=== PATIENT | male | born 1990 | race Caucasian/White ===

== ENCOUNTER 2016-10-17 15:36 | Emergency (ER) | payer MEDICAID ==
[~2016-10-17] VITALS: Wt 84.5 kg
[~2016-10-17 15:36] MED LIST: CIPR500T4 PO; FAMO-18 PO; HYDR-3720 PO; HYDR-902 PO; IBUP-1542 PO; IBUP800T25 PO
[2016-10-17] MEDS ORDERED: IBUP-1542 PO (17:32)
[2016-10-17] MEDS ORDERED: CEPH-443 PO (17:32)
[2016-10-17] MEDS ORDERED: BACTDS PO (17:32)
--- NOTE | 2016-10-17 17:42 | ERD ---
ER Documentation Chief Complaint Date/Time DATE: 10/17/16 TIME: 17:34 Chief Complaint LEFT 1ST TOE PAIN, SWELLING HPI Patient is a 26-year-old [place]ian-speaking male who presents with left toe pain and swelling. He states that he developed pain 2 weeks ago after injuring his toe where a tree trunk fell on his toe. He denies fever or chills. His xray was unremarkable and he has taken norco for his pain. However he states that it is red and swollen and drained pus a few days ago. He denies any new injuries or trauma. He states he does not have difficulty walking on his foot. He denies radiation of pain or swelling of his foot. Denies calf pain. Denies cough shortness of breath difficulty breathing. Denies headache or dizziness. Patient is requesting medication for his symptoms. Denies nausea, vomiting or diarrhea. ROS All systems reviewed and are negative except as per history of present illness. Medications Home Meds Active Scripts Ibuprofen* (Motrin*) 600 Mg Tab, 600 MG PO Q6, #30 TAB Prov:ELISE RODRIGEZ PA-C 10/17/16 Cephalexin* (Keflex*) 500 Mg Capsule, 500 MG PO QID for 5 Days, CAP Prov:ELISE RODRIGEZ PA-C 10/17/16 Sulfamethoxazole-Trimethoprim* (Bactrim* DS) 800-160 Mg Tab, 1 TAB PO BID for 5 Days, TAB Prov:ELISE RODRIGEZ PA-C 10/17/16 Ibuprofen* (Motrin*) 800 Mg Tab, 800 MG PO Q6, #30 TAB Prov:KAREN LEDEZMA PA-C 10/05/16 Hydrocodone/Acetaminophen ([place] 10-325 Tablet) 1 Each Tablet, 1 TAB PO Q6H Y for PAIN, #7 TAB Prov:KAREN LEDEZMA PA-C 10/05/16 Famotidine* (Pepcid*) 20 Mg Tablet, 20 MG PO BID for 14 Days, TAB Prov:KAI LEDESMA 05/25/16 Hydrocodone Bit-Acetaminophen* ([place]*) 7.5-325 Tablet, 1 TAB PO Q4H Y for PAIN , #20 TAB Prov:LEANA CHAO DO 01/23/16 Ibuprofen* (Motrin*) 800 Mg Tab, 800 MG PO Q6H Y for PAIN AND OR ELEVATED TEMP, #30 TAB Prov:LEANA CHAO DO 01/23/16 Ibuprofen* (Ibuprofen*) 600 Mg Tablet, 600 MG PO Q6, #30 TAB Prov:PARMINDER CAMPBELL MOISES 07/04/15 Ciprofloxacin Hcl* (Ciprofloxacin Hcl*) 500 Mg Tablet, 500 MG PO BID for 10 Days , TAB Prov:PARMINDER CAMPBELL MOISES 07/04/15 Allergies Allergies: Coded Allergies: No Known Allergy (Unverified , 10/17/16) PMhx/Soc Medical and Surgical Hx: pt denies Medical Hx, pt denies Surgical Hx History of Surgery: No Anesthesia Reaction: No Hx Neurological Disorder: No Hx Respiratory Disorders: No Hx Cardiac Disorders: No Hx Psychiatric Problems: No Hx Miscellaneous Medical Probl: No Hx Alcohol Use: Yes Hx Substance Use: No Hx Tobacco Use: Yes Smoking Status: Current every day smoker FmHx Family History: No coronary disease, No diabetes, No other Physical Exam Vitals Vital Signs Date Time Temp Pulse Resp B/P Pulse Ox O2 Delivery O2 Flow Rate FiO2 10/17/16 15:38 98.0 82 17 120/70 96 Physical Exam GENERAL: Well-developed, well-nourished male. Appears in no acute distress. HEAD: Normocephalic, atraumatic. LUNG: Clear to auscultation bilaterally. No rhonchi, wheezing, rales or coarse breath sounds. HEART: Regular rate and rhythm. No murmurs, rubs or gallops. BACK: No midline tenderness. Extremities: Equal pulses bilaterally. No peripheral clubbing, cyanosis or edema. No unilateral leg swelling. SKIN: tenderness and slight erythema to left great toe. no signs of felon. no streaking. pulses intact. rom intact. NEUROLOGIC: Alert and oriented. Moving all four extremities. 5/5 strength in all extremities. Normal speech. Steady gait. SKIN: Normal color. Warm and dry. . Capillary refill < 2 seconds Results 24 hrs Current Medications Medications (Trade) Dose Ordered Sig/Terri Route PRN Reason Start Time Stop Time Status Last Admin Dose Admin Ceftriaxone Sodium (Rocephin) 250 mg ONCE ONCE IM 10/17/16 18:00 10/17/16 18:01 DC 10/17/16 17:52 Lidocaine (Xylocaine 1% (Mdv) 20 ml) 20 ml ONCE ONCE SC 10/17/16 18:00 10/17/16 18:01 DC 10/17/16 17:53 Procedures/MDM ER COURSE: I kept the patient and/or family informed of laboratory and diagnostic imaging results throughout the emergency room course. MEDICATIONS: Rocephin, lidocaine. Patient tolerated medication well with no adverse reaction. ED dressing to toe. MEDICAL DECISION MAKING: This is a 26-year-old male who presents with left toe pain. Vital signs were reviewed. Patient is afebrile. Patient is not hypoxic. Patient is not toxic or ill-appearing. Patient has an infection in his left great toe. I do not think an incision and drainage is warranted at this time as the toe has already drained and I do not feel any fluctuance in the toe. Low suspicion for necrotizing fasciitis, SJS, toxic epidermal necrolysis, Kawasaki, erythema multiforme, gangrene, scarlet fever, meningococcemia, sepsis, anaphylaxis. Low suspicion for paronychia, felon. Patient had x-rays done on 10/05/2016 which was unremarkable. I do not think a repeat x-ray is necessary at this time as there is no new recent trauma and patient does not have pain. Low suspicion for dislocation, fracture, septic joint, compartment syndrome, osteomyelitis, cellulitis, avascular necrosis, neurological injury, vascular injury, tendon laceration. DISCHARGE: At this time, patient is stable for discharge and outpatient management with no new complaints during the ER course. Patient was sent home with Bactrim and Keflex and ibuprofen. Advised patient to return in 2 days for wound recheck. Patient will be discharged home with instructions to recheck for new or worsening symptoms such as fever, nausea, weakness, LOC and to follow up with primary care in the next 1-2 days. Patient was advised to return to the ER for any new or worsening symptoms. Plan was discussed and patient and/or family understands and agrees. Home instructions were given. Departure Diagnosis: Primary Impression: Toe pain, left Condition: Stable Patient Instructions: Sprain Toe Additional Instructions: Llame al doctor LINCOLN y gisela jonnathan SEAN PARA DENTRO DE 1-2 MEJIA.Dgale a la secretaria que nosotros le instruimos hacer esta sean.Avise o llame si roy condicin se empeora antes de la sean. Regresa aqui si peor o no mejor. ELISE RODRIGEZ PA-C Oct 17, 2016 17:42
[2016-10-17] MEDS ORDERED: CEFTRIAXONE 250 MG INJ IM ONE (18:00)
[2016-10-17] MEDS ORDERED: LIDOCAINE 1% (MDV) 20 ML INJ SC ONE (18:00)
== END 2016-10-17 18:15 | disposition home or self-care (01) ==
LOC: FTE 15:36
DX: S99.922A Unspecified injury of left foot, initial encounter (principal); F17.210 Nicotine dependence, cigarettes, uncomplicated; W20.8XXA Other cause of strike by thrown, projected or falling object, initial encounter; Y92.9 Unspecified place or not applicable
CPT/HCPCS: 96372; J0696; Z7502; Z7610

== ENCOUNTER 2017-05-06 08:13 | Emergency (ER) | payer MEDICAID ==
[~2017-05-06] VITALS: Wt 83.0 kg
[~2017-05-06 08:13] MED LIST changes: +BACTDS PO; +CEPH-443 PO; -FAMO-18 PO; +FAMO-96 PO
[2017-05-06] MEDS ORDERED: LIDOCAINE/MYLANTA 40 ML BTL PO STA (08:28)
--- NOTE | 2017-05-06 08:40 | ERD ---
ER Documentation Chief Complaint Date/Time DATE: 05/06/17 TIME: 08:39 Chief Complaint ABD PAIN X 8 DAYS HPI 26-year-old male with history of GERD presents with epigastric abdominal pain that radiates his left upper quadrant for the past 8 days. He describes it as burning pain, worse with eating, previously has been treated with ranitidine. This time he tried taking Tums however it did not improve his pain. He states that he does drink a few beers, alcoholic beverages each day. He denies any history of fevers or chills, nausea, vomiting, chest pain or shortness of breath. ROS All systems reviewed and are negative except as per history of present illness. Medications Home Meds Active Scripts Omeprazole* (Omeprazole*) 20 Mg Capsule.dr, 20 MG PO DAILY, #30 Prov:PHILIP GILLIS PA-C 05/06/17 Ranitidine Hcl* (Zantac*) 150 Mg Tablet, 150 MG PO BID Y for EPIGASTRIC PAIN, # 30 TAB Prov:PHILIP GILLIS PA-C 05/06/17 Hydrocodone/Acetaminophen ([place] 5-325 Tablet) 1 Each Tablet, 1 TAB PO Q6H Y for PAIN, #7 TAB Prov:PHILIP GILLIS PA-C 05/06/17 Ibuprofen* (Motrin*) 600 Mg Tab, 600 MG PO Q6, #30 TAB Prov:ELISE RODRIGEZ PA-C 10/17/16 Cephalexin* (Keflex*) 500 Mg Capsule, 500 MG PO QID for 5 Days, CAP Prov:ELISE RODRIGEZ PA-C 10/17/16 Sulfamethoxazole-Trimethoprim* (Bactrim* DS) 800-160 Mg Tab, 1 TAB PO BID for 5 Days, TAB Prov:ELISE RODRIGEZ PA-C 10/17/16 Ibuprofen* (Motrin*) 800 Mg Tab, 800 MG PO Q6, #30 TAB Prov:KAREN LEDEZMA PA-C 10/05/16 Hydrocodone/Acetaminophen ([place] 10-325 Tablet) 1 Each Tablet, 1 TAB PO Q6H Y for PAIN, #7 TAB Prov:KAREN LEDEZMA PA-C 10/05/16 Famotidine* (Pepcid*) 20 Mg Tablet, 20 MG PO BID for 14 Days, TAB Prov:KAI LEDESMA 05/25/16 Hydrocodone Bit-Acetaminophen* ([place]*) 7.5-325 Tablet, 1 TAB PO Q4H Y for PAIN , #20 TAB Prov:LEANA CHAO DO 01/23/16 Ibuprofen* (Motrin*) 800 Mg Tab, 800 MG PO Q6H Y for PAIN AND OR ELEVATED TEMP, #30 TAB Prov:LEANA CHAO. DO 01/23/16 Ibuprofen* (Ibuprofen*) 600 Mg Tablet, 600 MG PO Q6, #30 TAB Prov:PARMINDER CAMPBELL PA-C 07/04/15 Ciprofloxacin Hcl* (Ciprofloxacin Hcl*) 500 Mg Tablet, 500 MG PO BID for 10 Days , TAB Prov:PARMINDER CAMPBELL PA-C 07/04/15 Allergies Allergies: Coded Allergies: No Known Allergy (Unverified , 10/17/16) PMhx/Soc Medical and Surgical Hx: pt denies Medical Hx, pt denies Surgical Hx History of Surgery: No Anesthesia Reaction: No Hx Neurological Disorder: No Hx Respiratory Disorders: No Hx Cardiac Disorders: No Hx Psychiatric Problems: No Hx Miscellaneous Medical Probl: No Hx Alcohol Use: Yes Hx Substance Use: Yes (marijuana) Hx Tobacco Use: Yes Smoking Status: Current every day smoker Physical Exam Vitals Vital Signs Date Time Temp Pulse Resp B/P Pulse Ox O2 Delivery O2 Flow Rate FiO2 05/06/17 08:18 98.0 63 18 119/63 99 Physical Exam General: Well-developed, well-nourished. The patient appears in no acute distress. HEENT: Head is normocephalic, atraumatic. No scleral icterus. Neck: Supple. Nontender. Lungs: Clear to auscultation. Normal air movement. Heart: Regular rate and rhythm. S1 and S2 are normal. No murmurs, gallops, or rubs. Abdomen: Soft, tender to palpation in the epigastric region nondistended. Bowel sounds are normoactive. No masses appreciated, there is no tenderness to McBurney's point, negative Rothman sign Extremities: No clubbing or cyanosis. Normal pulses. Moving extremities x 4. No weakness. Neurologic: Alert and oriented 3. No focal deficits. Skin: Normal turgor. No rash or lesions. Result Diagram: 05/06/17 0840 05/06/17 0840 Results 24 hrs Laboratory Tests Test 05/06/17 08:40 White Blood Count 6.710^3/ul Red Blood Count 5.4910^6/ul Hemoglobin 16.6g/dl Hematocrit 47.9% Mean Corpuscular Volume 87.2fl Mean Corpuscular Hemoglobin 30.2pg Mean Corpuscular Hemoglobin Concent 34.7g/dl Red Cell Distribution Width 11.6% Platelet Count 65896^3/UL Mean Platelet Volume 10.3fl Neutrophils % 42.7% Lymphocytes % 43.3% Monocytes % 9.7% Eosinophils % 3.6% Basophils % 0.4% Nucleated Red Blood Cells % 0.0/100WBC Neutrophils # 2.910^3/ul Lymphocytes # 2.910^3/ul Monocytes # 0.710^3/ul Eosinophils # 0.210^3/ul Basophils # 0.010^3/ul Nucleated Red Blood Cells # 0.010^3/ul Urine Color YELLOW Urine Clarity CLEAR Urine pH 5.0 Urine Specific [place] 1.030 Urine Ketones NEGATIVEmg/dL Urine Nitrite NEGATIVEmg/dL Urine Bilirubin NEGATIVEmg/dL Urine Urobilinogen NEGATIVEmg/dL Urine Leukocyte Esterase NEGATIVELeu/ul Urine Hemoglobin NEGATIVEmg/dL Urine Glucose 1+mg/dL Urine Total Protein NEGATIVEmg/dl Sodium Level 143mmol/L Potassium Level 4.1mmol/L Chloride Level 102mmol/L Carbon Dioxide Level 26mmol/L Anion Gap 19 Blood Urea Nitrogen 17mg/dl Creatinine 0.87mg/dl Glucose Level 89mg/dl Calcium Level 9.9mg/dl Total Bilirubin 0.1mg/dl Direct Bilirubin 0.00mg/dl Indirect Bilirubin 0.1mg/dl Aspartate Amino Transf (AST/SGOT) 91IU/L Alanine Aminotransferase (ALT/SGPT) 222IU/L Alkaline Phosphatase 72IU/L Total Protein 7.9g/dl Albumin 4.8g/dl Globulin 3.10g/dl Albumin/Globulin Ratio 1.54 Lipase 415U/L Current Medications Medications (Trade) Dose Ordered Sig/Terri Route PRN Reason Start Time Stop Time Status Last Admin Dose Admin Miscellaneous Medication (Gi Cocktail (2)) 40 ml ONCE STAT PO 05/06/17 08:28 05/06/17 08:29 DC 05/06/17 08:33 Procedures/MDM ED course: Patient was given a GI cocktail. MDM: 26-year-old male comes in with epigastric abdominal pain, patient's differential diagnosis includes gastritis, GERD, acute cholangitis, choledocholithiasis, biliary colic and among others. Patient comes in with a history of recent heavy drinking, lipase was in the 400s, no evidence of pancreatitis. He does have elevated AST and ALT as well, with hepatic fatty infiltration of the liver on ultrasound. No evidence of gallstones. Patient was advised to eat a low-fat diet, avoid drinking, and recheck liver enzymes with his primary care doctor. Departure Diagnosis: Primary Impression: Abdominal pain Additional Impressions: Transaminitis Elevated lipase Condition: PHILIP Null PA-C May 06, 2017 08:40
[2017-05-06 09:02] LABS: BASOPHILS % 0.4 % (0.0-2.0); EOSINOPHILS # 0.2 10^3/ul (0.0-0.5); EOSINOPHILS % 3.6 % (0.0-7.0); HEMATOCRIT 47.9 % (42.0-52.0); HEMOGLOBIN 16.6 g/dl (14.0-18.0); LYMPHOCYTES # 2.9 10^3/ul (0.8-2.9); LYMPHOCYTES % 43.3 % (15.0-51.0); MEAN CORPUSCULAR HEMOGLOBIN 30.2 pg (29.0-33.0); MEAN CORPUSCULAR HGB CONC 34.7 g/dl (32.0-37.0); MEAN CORPUSCULAR VOLUME 87.2 fl (82.0-101.0); MEAN PLATELET VOLUME 10.3 fl (7.4-10.4); MONOCYTE # 0.7 10^3/ul (0.3-0.9); MONOCYTES % 9.7 % (0.0-11.0); NEUTROPHIL # 2.9 10^3/ul (1.6-7.5); NEUTROPHILS % 42.7 % (39.0-77.0); PLATELET COUNT 229 10^3/UL (140-415); RED BLOOD COUNT 5.49 10^6/ul (4.70-6.10); RED CELL DISTRIBUTION WIDTH 11.6 % (11.5-14.5); WHITE BLOOD COUNT 6.7 10^3/ul (4.8-10.8)
[2017-05-06 09:35] LABS: ALBUMIN 4.8 g/dl (3.3-4.9); ALBUMIN/GLOBULIN RATIO 1.54; BILIRUBIN,INDIRECT 0.1 mg/dl (0-1.1); BILIRUBIN,TOTAL 0.1 mg/dl (0.2-1.3); CALCIUM 9.9 mg/dl (8.4-10.2); CREATININE 0.87 mg/dl (0.61-1.24); POTASSIUM 4.1 mmol/L (3.5-5.1); TOTAL PROTEIN 7.9 g/dl (6.1-8.1)
[2017-05-06 09:56] LABS: ADD UMIC NO; UR ASCORBIC ACID NEGATIVE (NEGATIVE); UR BILIRUBIN (Dip) NEGATIVE (NEGATIVE); UR BLOOD (Dip) NEGATIVE (NEGATIVE); UR CLARITY CLEAR (CLEAR); UR COLOR YELLOW (YELLOW); UR GLUCOSE (Dip) 1+ mg/dL (NEGATIVE); UR KETONES (Dip) NEGATIVE (NEGATIVE); UR LEUKOCYTE ESTERASE (Dip) NEGATIVE Leu/ul (NEGATIVE); UR NITRITE (Dip) NEGATIVE (NEGATIVE); UR TOTAL PROTEIN (Dip) NEGATIVE (NEGATIVE); UR UROBILINOGEN (Dip) NEGATIVE (NEGATIVE)
--- NOTE | 2017-05-06 10:57 | RADRPT ---
PROCEDURE: US Abdomen. CLINICAL INDICATION: abdominal pain TECHNIQUE: Multiple real-time images were acquired of the patient's right upper quadrant abdomen a nd retroperitoneum utilizing a high resolution transducer. COMPARISON: None FINDINGS: The liver demonstrates increased echogenicity. There is a focal sparing adjacent to the gallbladder fossa. The liver is normal in size and no focal solid lesions are seen. The liver measures 16.3 cm i n length. The portal vein is patent with normal direction of flow. No intrahepatic biliary dilatati on is seen. No gallstones are identified within the gallbladder. There is no pericholecystic fluid or gallbladd er wall thickening. The common bile duct measures 4.5 mm in maximal dimension. The visualized portions of the pancreas are unremarkable. The tail of the pancreas is not seen. No free fluid is identified. The right kidney is normal in size, and demonstrate normal echogenicity and cortical thickness. The right kidney measures 10.6 cm in long dimension. There is no evidence of hydronephrosis. There are no kidney stones. RPTAT: AA IMPRESSION: Fatty infiltration of the liver. No evidence of gallstones. .Enrico Isbell MD, Date Time Electronically viewed and signed by .Enrico Isbell MD, on 05/06/2017 10:57 .S/
[2017-05-06] MEDS ORDERED: HYDR-906 PO (11:20)
[2017-05-06] MEDS ORDERED: RANI150T9 PO (11:20)
[2017-05-06] MEDS ORDERED: OMEP20CA16 PO (11:20)
== END 2017-05-06 11:27 | disposition home or self-care (01) ==
LOC: FTE 08:13
DX: R10.13 Epigastric pain (principal); R74.0 Nonspecific elevation of levels of transaminase and lactic acid dehydrogenase [LDH]; R74.8 Abnormal levels of other serum enzymes; F17.210 Nicotine dependence, cigarettes, uncomplicated
CPT/HCPCS: 36415; 76705; 80053; 81003; 83690; 85025; Z7502; Z7610

== ENCOUNTER 2017-12-14 06:55 | Emergency (ER) | END 2017-12-14 08:09 | disposition home or self-care (01) ==

== ENCOUNTER 2018-04-17 07:12 | Emergency (ER) | END 2018-04-17 09:14 | disposition home or self-care (01) ==